=== PATIENT | male | born 1965 | race Caucasian/White ===

== ENCOUNTER 2018-06-06 23:25 | Emergency (ER) | payer OTHER ==
[~2018-06-06] VITALS: Ht 177.8 cm; Wt 170.1 kg
[~2018-06-06 23:25] MED LIST: ALBIPROI INH; AMOX1XR PO; AMOX500 PO; AZIT250 PO; CEPH500 PO; CIPRSO OD; CYCL10 PO; Chantix1 EACH; HYDACE5 PO; HYDGUAL120 PO; LOPE2C PO; Naprosyn500 MG PO; SULTRIDS PO; Zofran8 MG PO
== END 2018-06-07 01:22 | disposition home or self-care (01) ==
LOC: ER 23:25
DX: S16.1XXA Strain of muscle, fascia and tendon at neck level, initial encounter (principal); M25.511 Pain in right shoulder; J45.901 Unspecified asthma with (acute) exacerbation; F17.200 Nicotine dependence, unspecified, uncomplicated; Z79.899 Other long term (current) drug therapy; V89.2XXA Person injured in unspecified motor-vehicle accident, traffic, initial encounter
CPT/HCPCS: 96372; 99283-25; J1885

== ENCOUNTER 2019-07-03 23:33 | Emergency (ER) | payer OTHER ==
[~2019-07-03] VITALS: Ht 177.8 cm; Wt 180.1 kg
[2019-07-04] MEDS ORDERED: Augmentin 875-1 EACH PO (00:36)
== END 2019-07-04 00:48 | disposition home or self-care (01) ==
LOC: ER 23:33
DX: L03.012 Cellulitis of left finger (principal); J45.909 Unspecified asthma, uncomplicated; F17.200 Nicotine dependence, unspecified, uncomplicated; Z79.899 Other long term (current) drug therapy
CPT/HCPCS: 10060; 99283-25